=== PATIENT | female | born 1955 | race Caucasian/White ===

== ENCOUNTER 2016-12-10 10:37 | Emergency (ER) | payer SELFPAY ==
[~2016-12-10] VITALS: Ht 165.1 cm; Wt 129.0 kg
[2016-12-10 10:47] VITALS: BP 118/48; PULSE 91; RESP 18; TEMP 98; O2SAT 97
[2016-12-10] MEDS ORDERED: FURO1TAB62 PO (11:07)
[2016-12-10] MEDS ORDERED: LISI20TA3 PO (11:07)
[2016-12-10] MEDS ORDERED: GABA600T PO (11:07)
[2016-12-10] MEDS ORDERED: PRAV40TA2 PO (11:07)
[2016-12-10] MEDS ORDERED: ESOM1CAP6 PO (11:07)
[2016-12-10] MEDS ORDERED: GLIP10TA67 PO (11:07)
[2016-12-10] MEDS ORDERED: HYDR-2376 PO (11:07)
[2016-12-10] MEDS ORDERED: VENL150C39 PO (11:07)
[2016-12-10] MEDS ORDERED: POTA10TA8 PO (11:07)
[2016-12-10] MEDS ORDERED: AMIT1TAB79 PO (11:07)
[2016-12-10] MEDS ORDERED: PRAV80TA2 PO (11:07)
[2016-12-10 11:53] LABS: AUTOMATED NEUTROPHIL # 5.8 TH/MM3 (1.8-7.7); BASOPHIL % 0.5 % (0.0-2.0); EOSINOPHIL # 0.1 TH/MM3 (0-0.4); EOSINOPHIL % 1.3 % (0.0-4.0); HEMATOCRIT 24.7 % (35.0-46.0); LYMPH % 16.9 % (9.0-44.0); LYMPHOCYTE # 1.3 TH/MM3 (1.0-4.8); MEAN CELL VOLUME 72.6 FL (80.0-100.0); MEAN CORPUSCULAR HEMOGLOBIN 22.6 PG (27.0-34.0); MEAN CORPUSCULAR HGB CONC 31.2 % (32.0-36.0); MONO % 5.2 % (0.0-8.0); NEUT % 76.1 % (16.0-70.0); PLATELET COUNT 319 TH/MM3 (150-450); RED BLOOD COUNT 3.41 MIL/MM3 (4.00-5.30); RED CELL DISTRIBUTION WIDTH 17.1 % (11.6-17.2); WHITE BLOOD COUNT 7.6 TH/MM3 (4.0-11.0)
[2016-12-10 11:59] LABS: HEMO FLAGS AUTO DIFF
[2016-12-10 12:01] LABS: CHLORIDE 105 MEQ/L (98-107); POTASSIUM 4.3 MEQ/L (3.5-5.1); SODIUM (NA) 142 MEQ/L (136-145)
[2016-12-10 12:05] LABS: ANION GAP 9 MEQ/L (5-15); BICARBONATE 28.5 MEQ/L (21.0-32.0); BLOOD UREA NITROGEN 61 MG/DL (7-18)
[2016-12-10 12:07] LABS: ALT (GPT) 23 U/L (10-53)
[2016-12-10 12:08] LABS: AST (GOT) 21 U/L (15-37); GLOMERULAR FILTRATION RATE 31 ML/MIN (>89)
[2016-12-10 12:09] LABS: TOTAL BILIRUBIN ADULT 0.3 MG/DL (0.2-1.0)
[2016-12-10 12:10] LABS: ALKALINE PHOSPHATASE 89 U/L (45-117)
[2016-12-10 12:21] VITALS: BP 104/50; PULSE 67; RESP 18; O2SAT 96
[2016-12-10 12:27] LABS: OVALOCYTES 1+ (NORMAL); SCAN/DIFF AUTO DIFF CONFIRMED
--- NOTE | 2016-12-10 12:46 | RADHPO ---
EXAM DATE/TIME: 12/10/2016 11:52 [facility] COMPARISON: No previous studies available for comparison. INDICATIONS : Lower leg swelling. MEDICAL HISTORY : Hypertension. Diabetes mellitus type II. Chronic obstructive pulmonary diseas e. SURGICAL HISTORY : None. ENCOUNTER: Initial ACUITY: 4 - 6 days PAIN SCORE: 0/10 LOCATION: Bilateral chest FINDINGS: The lungs are clear without infiltrate, nodule, or mass. There is no appreciable pleural effusion fo r technique. Heart and mediastinum are unremarkable. Degenerative changes and hypertrophic changes a re seen within the disc space and facets of the thoracic spine. CONCLUSION: No acute cardiopulmonary disease. Alcira Deng MD on December 10, 2016 at 12:44 Board Certified Radiologist. This report was verified electronically.
--- NOTE | 2016-12-10 12:49 | PD ---
HPI Chief Complaint: Edema Time Seen by Provider: 11:29 Travel History International Travel<30 days: No Contact w/Intl Traveler<30days: No Traveled to known affect area: No History of Present Illness HPI To 61 year-old woman who presents to the emergency department complaining of swelling in her feet. She states that she's had swelling of both feet for the past 5 days or so. She takes Lasix as needed for lower extremity swelling. She started taking the Lasix and then Dilaudid to taking it twice a day but hasn 't really relieved the swelling. She also has a history of neuropathy and states it feels like she is walking on gravel rocks. This is not typical for her neuropathy symptoms. She has been on her feet more for the past 3 weeks, but only started having trouble couple days ago. History Past Medical History Narrative Medical Diabetes Hypertension Obesity Hyperlipidemia Diabetic neuropathy Osteoarthritis Tetanus Vaccination: > 5 Years Influenza Vaccination: No LMP: AGE 47 Menopausal: Yes Past Surgical History Surgical History: No Previous Surgery Social History Alcohol Use: Yes (RARE) Tobacco Use: No Allergies-Medications (Allergen,Severity, Reaction): Coded Allergies: Cipro (Verified Allergy, Severe, 12/10/16) Keflex (Verified Allergy, Severe, 12/10/16) Reported Meds & Prescriptions Reported Meds & Active Scripts Active Reported Hydrocodone-Acetaminophen 7.5-300 Mg Tab 1 Tab PO Q4H PRN Venlafaxine ER 24 HR (Venlafaxine HCl) 150 Mg Cap 150 Mg PO DAILY Glipizide XL (Glipizide) 10 Mg Geo 10 Mg PO DAILY Take with breakfast or first main meal of the day Nexium 24 HR (Esomeprazole DR) 20 Mg Capdr 20 Mg PO DAILY Elavil (Amitriptyline HCl) 25 Mg Tab 50 Mg PO HS Potassium Chloride CR (Potassium Chloride) 10 Meq Tab 10 Meq PO DAILY Lasix (Furosemide) 20 Mg Tab 20 Mg PO DAILY Pravastatin 80 Mg Tab 80 Mg PO DAILY Pravastatin 40 Mg Tab 40 Mg PO DAILY Gabapentin 600 Mg Tab 600 Mg PO TID Lisinopril-Hctz 20-25 Mg Tab 1 Tab PO DAILY Review of Systems Except as stated in HPI: all other systems reviewed are Neg Physical Exam Narrative GENERAL: Well-appearing 61 year-old woman, no acute distress. SKIN: Focused skin assessment warm/dry. CARDIOVASCULAR: Regular rate and rhythm. No murmur appreciated. RESPIRATORY: No accessory muscle use. Clear to auscultation. Breath sounds equal bilaterally. GASTROINTESTINAL: Abdomen soft, non-tender, nondistended. Hepatic and splenic margins not palpable. MUSCULOSKELETAL: No obvious deformities. Pitting edema both feet. Data Data Last Documented VS Vital Signs Date Time Temp Pulse Resp B/P Pulse Ox O2 Delivery O2 Flow Rate FiO2 12/10/16 12:21 67 18 104/50 96 Room Air 12/10/16 10:47 98.0 Orders Complete Blood Count With Diff (12/10/16 11:41) Comprehensive Metabolic Panel (12/10/16 11:41) Chest, Pa & Lat (12/10/16 ) Iron Sucrose Inj (Venofer Inj) (12/10/16 13:00) Labs Laboratory Tests Test 12/10/16 11:15 White Blood Count 7.6 TH/MM3 Red Blood Count 3.41 MIL/MM3 Hemoglobin 7.7 GM/DL Hematocrit 24.7 % Mean Corpuscular Volume 72.6 FL Mean Corpuscular Hemoglobin 22.6 PG Mean Corpuscular Hemoglobin 31.2 % Concent Red Cell Distribution Width 17.1 % Platelet Count 319 TH/MM3 Mean Platelet Volume 8.6 FL Neutrophils (%) (Auto) 76.1 % Lymphocytes (%) (Auto) 16.9 % Monocytes (%) (Auto) 5.2 % Eosinophils (%) (Auto) 1.3 % Basophils (%) (Auto) 0.5 % Neutrophils # (Auto) 5.8 TH/MM3 Lymphocytes # (Auto) 1.3 TH/MM3 Monocytes # (Auto) 0.4 TH/MM3 Eosinophils # (Auto) 0.1 TH/MM3 Basophils # (Auto) 0.0 TH/MM3 CBC Comment AUTO DIFF Differential Comment AUTO DIFF CONFIRMED Ovalocytes 1+ Sodium Level 142 MEQ/L Potassium Level 4.3 MEQ/L Chloride Level 105 MEQ/L Carbon Dioxide Level 28.5 MEQ/L Anion Gap 9 MEQ/L Blood Urea Nitrogen 61 MG/DL Creatinine 1.70 MG/DL Estimat Glomerular Filtration 31 ML/MIN Rate Random Glucose 184 MG/DL Calcium Level 8.4 MG/DL Total Bilirubin 0.3 MG/DL Aspartate Amino Transf 21 U/L (AST/SGOT) Alanine Aminotransferase 23 U/L (ALT/SGPT) Alkaline Phosphatase 89 U/L Total Protein 7.5 GM/DL Albumin 3.0 GM/DL [facility] Medical Decision Making Medical Screen Exam Complete: Yes Emergency Medical Condition: Yes Interpretation(s) LABS: CBC remarkable for significant anemia, microcytic indices. CMP remarkable for elevated BUN and creatinine, suggestive of prerenal azotemia Chest x-ray: Negative Differential Diagnosis Dependent edema, venous insufficiency, lymphedema, renal failure, hypoproteinemia, heart failure, other Narrative Course Medical decision making This a 61 year-old woman presents emergent department cleaning of swelling of both her feet. She's been taking Lasix to try to help with this. She appears a little bit dehydrated. Labs show marked prerenal azotemia. She also has marked anemia. I think the anemia and her obesity year likely leading to the foot swelling. She has a lot of discomfort and think is from the swelling and neuropathy. The prerenal azotemia think is from try these Lasix to treat this. We'll have her stop the Lasix. We'll given IV iron. She states she takes iron intermittently but doesn't like to take as a cause constipation. She states that anemia is from hemorrhoids that she has a bleed and bleed and bleed. She'll need follow-up with a primary physician but she just moved down here. Diagnosis Primary Impression: Microcytic anemia Additional Impressions: Prerenal azotemia Dehydration Additional Instructions: Stop taking the Lasix. This is causing you to have kidney problems. Do not resume until directed by physician. Take iron 325 mg twice daily for 1 month, then once daily after that. Take MiraLAX daily to prevent constipation. Follow-up with a primary physician for repeat blood work in the next one to 2 weeks. Return to the emergency department for any worsening symptoms. Med/Other Pt SpecificInfo: Existing Med Changed Scripts Polyethylene Glycol 3350 Powder (Miralax Powder)17 Gm Powd17 Gm PO DAILY #1 BOTTLE Ref 0 Mix and dissolve one measuring cap-ful (17 grams) in water or juice. Prov:Macario Machado MD 12/10/16 Ferrous Sulfate (Iron)325 Mg Cbs203 Mg PO BIDPC 30 Days Ref 0 Take after a meal. Prov:Macario Machado MD 12/10/16 Disposition: 01 DISCHARGE HOME Condition: Stable Macario Machado MD Dec 10, 2016 12:49
[2016-12-10] MEDS ORDERED: IRON SUCROSE 100 MG/5 ML VIAL IV PUSH ONE (13:00)
[2016-12-10] MEDS ORDERED: FERR1TAB36 PO (13:00)
[2016-12-10] MEDS ORDERED: MIRA33504 PO (13:00)
[2016-12-10] MEDS ORDERED: NS IV ONE (14:00)
[2016-12-10] MEDS ORDERED: IRON SUCROSE IV ONE (14:00)
[2016-12-10 15:37] VITALS: BP 110/50
== END 2016-12-10 15:42 | disposition home or self-care (01) ==
LOC: PHED 10:37
DX: D50.9 Iron deficiency anemia, unspecified (principal); R79.89 Other specified abnormal findings of blood chemistry; E86.0 Dehydration; R22.43 Localized swelling, mass and lump, lower limb, bilateral; I10 Essential (primary) hypertension; E11.40 Type 2 diabetes mellitus with diabetic neuropathy, unspecified; M19.90 Unspecified osteoarthritis, unspecified site; E78.5 Hyperlipidemia, unspecified; E66.9 Obesity, unspecified; Z79.84 Long term (current) use of oral hypoglycemic drugs
CPT/HCPCS: 71020; 80053; 85025; 96365; 99283; J1756

== ENCOUNTER 2017-02-07 11:27 | Emergency (ER) | payer SELFPAY ==
[~2017-02-07] VITALS: Ht 165.1 cm; Wt 132.0 kg
[~2017-02-07 11:27] MED LIST: AMIT1TAB79 PO; ESOM1CAP6 PO; FERR1TAB36 PO; FURO1TAB62 PO; GABA600T PO; GLIP10TA67 PO; HYDR-2376 PO; LISI20TA3 PO; MIRA33504 PO; POTA10TA8 PO; PRAV40TA2 PO; PRAV80TA2 PO; VENL150C39 PO
[2017-02-07 11:28] VITALS: BP 121/58; PULSE 83; RESP 16; TEMP 98.3; O2SAT 99
--- NOTE | 2017-02-07 13:16 | PD ---
HPI Chief Complaint: Fall Time Seen by Provider: 13:14 Travel History International Travel<30 days: No Contact w/Intl Traveler<30days: No Traveled to known affect area: No History of Present Illness HPI 61-year-old male presents the emergency department status post fall at work. 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 She fell down hitting her right posterior head, but denies loss of consciousness. Patient does have headache and pain at this time. Pain is currently a 4/10. She does not feel dizzy, has no nausea, or vomiting. She denies any other injury at this time. She states she has a history of chronic back pain as well as knee arthritis. She is allergic to Cipro and Keflex. PFSH Past Medical History Depression: Yes High Cholesterol: Yes COPD: Yes Diabetes: Yes Patient Takes Glucophage: No Diminished Hearing: No Genitourinary: Yes (KIDNEY DISEASE) Hypertension: Yes Neurologic: Yes Respiratory: Yes (COPD) Immunizations Current: Yes Influenza Vaccination: No ?: Not Menopausal: Yes Past Surgical History Surgical History: No Previous Surgery Social History Alcohol Use: Yes (RARE) Tobacco Use: No Substance Use: No Allergies-Medications (Allergen,Severity, Reaction): Coded Allergies: Cipro (Verified Allergy, Severe, rash, 02/07/17) Keflex (Verified Allergy, Severe, yeast infection, 02/07/17) Reported Meds & Prescriptions Reported Meds & Active Scripts Active Miralax Powder (Polyethylene Glycol 3350 Powder) 17 Gm Powd 17 Gm PO DAILY Mix and dissolve one measuring cap-ful (17 grams) in water or juice. Iron (Ferrous Sulfate) 325 Mg Tab 325 Mg PO BIDPC 30 Days Take after a meal. Reported Hydrocodone-Acetaminophen 7.5-300 Mg Tab 1 Tab PO Q4H PRN Venlafaxine ER 24 HR (Venlafaxine HCl) 150 Mg Cap 150 Mg PO DAILY Glipizide XL (Glipizide) 10 Mg Geo 10 Mg PO DAILY Take with breakfast or first main meal of the day Nexium 24 HR (Esomeprazole DR) 20 Mg Capdr 20 Mg PO DAILY Elavil (Amitriptyline HCl) 25 Mg Tab 50 Mg PO HS Potassium Chloride CR (Potassium Chloride) 10 Meq Tab 10 Meq PO DAILY Lasix (Furosemide) 20 Mg Tab 20 Mg PO DAILY Pravastatin 80 Mg Tab 80 Mg PO DAILY Pravastatin 40 Mg Tab 40 Mg PO DAILY Gabapentin 600 Mg Tab 600 Mg PO TID Lisinopril-Hctz 20-25 Mg Tab 1 Tab PO DAILY Review of Systems General / Constitutional: No: Fever Eyes: No: Diploplia, Blurred Vision, Photophobia, Drainage, Blind Spots, Visual changes, Blindness HENT: Positive: Headaches, Neck Pain, No: Vertigo, Lightheadedness, Neck Stiffness Cardiovascular: No: Chest Pain or Discomfort Respiratory: No: Shortness of Breath Gastrointestinal: No: Abdominal Pain Genitourinary: No: Dysuria Musculoskeletal: Positive: Pain (see history present illness.) Skin: No Rash Neurologic: No: Weakness Psychiatric: No: Depression Endocrine: No: Polydipsia Hematologic/Lymphatic: No: Easy Bruising Physical Exam Narrative GENERAL: Obese Patient who appears in mild distress. SKIN: Warm and dry. No color. Normal turgor. HEAD: Normocephalic. Patient has swollen area to the right posterior scalp over this region. EYES: Pupils equal and round. No scleral icterus. No injection or drainage. ENT: No nasal bleeding or discharge. Mucous membranes pink and moist. No dental injury. No facial injury. TMs are clear bilaterally. NECK: Trachea midline. Patient has tenderness to the upper midline cervical spine. Cervical immobilization is left in place for CT scan. CARDIOVASCULAR: Regular rate and rhythm. RESPIRATORY: No accessory muscle use. Clear to auscultation. Breath sounds equal bilaterally. GASTROINTESTINAL: Abdomen soft, non-tender, nondistended. Hepatic and splenic margins not palpable. MUSCULOSKELETAL: Extremities without clubbing, cyanosis, or edema. No obvious deformities. Right knee is currently asymptomatic, without laxity or significant pain. No effusion. She complains of pain along the right lower lumbar area and sciatic notch. She states this is not worse than normal. NEUROLOGICAL: Awake and alert. No obvious cranial nerve deficits. Motor grossly within normal limits. Five out of 5 muscle strength in the arms and legs. Normal speech. PSYCHIATRIC: Appropriate mood and affect; insight and judgment normal. Data Data Last Documented VS Vital Signs Date Time Temp Pulse Resp B/P Pulse Ox O2 Delivery O2 Flow Rate FiO2 02/07/17 11:28 98.3 83 16 121/58 99 Orders Collar [place] (02/07/17 ) Ct Brain W/O Iv Contrast(Rout) (02/07/17 13:04) Ct Cerv Spine W/O Contrast (02/07/17 13:04) [facility] Medical Decision Making Medical Screen Exam Complete: Yes Emergency Medical Condition: Yes Differential Diagnosis Fall at work. Scalp contusion. Neck pain. Workplace injury. Narrative Course Patient is medically stable at time of exam. Cervical immobilization is maintained for CT scan. CT of the head and neck are ordered. CT is negative for acute fracture or intracranial bleed. Large hematomas noted on CT of the head to the left parietal region per radiologist. Patient will be treated with prednisone 20 mg twice a day 5 days. Patient also take acetaminophen 500 mg 2 tabs every 6 hours when necessary pain. Patient is to use ice to the scalp region frequently. Worker's Comp. forms completed with no restrictions, and back to work tomorrow. Patient is to follow with local primary care physician or return to emergency department if symptoms worsen as needed. Diagnosis Primary Impression: Work place accident Additional Impression: Contusion of scalp, initial encounter Referrals: [facility] Patient Instructions: General Instructions, Scalp Contusion in Adults (ED) Additional Instructions: CT is negative for acute fracture or intracranial bleed. Large hematomas noted on CT of the head to the left parietal region per radiologist. Patient will be treated with prednisone 20 mg twice a day 5 days. Patient also take acetaminophen 500 mg 2 tabs every 6 hours when necessary pain. Patient is to use ice to the scalp region frequently. Worker's Comp. forms completed with no restrictions, and back to work tomorrow. Patient is to follow with local primary care physician or return to emergency department if symptoms worsen as needed. Med/Other Pt SpecificInfo: Prescription(s) given Disposition: 01 DISCHARGE HOME Condition: Stable Clem Butler Feb 07, 2017 13:16
--- NOTE | 2017-02-07 14:13 | RADRPT ---
EXAM DATE/TIME: 02/07/2017 13:49 [facility] COMPARISON: No previous studies available for comparison. INDICATIONS : Paitent fell today hitting back of head on wall. RADIATION DOSE: 56.35 CTDIvol (mGy) MEDICAL HISTORY : Hypertension. Chronic obstructive pulmonary disease. Diabetes,kidney disease SURGICAL HISTORY : None. ENCOUNTER: Initial ACUITY: 1 day PAIN SCALE: 7/10 LOCATION: cranial TECHNIQUE: Multiple contiguous axial images were obtained of the head. Using automated exposure control and adj ustment of the mA and/or kV according to patient size, radiation dose was kept as low as reasonably a chievable to obtain optimal diagnostic quality images. FINDINGS: CEREBRUM: The ventricles are normal for age. No evidence of midline shift, mass lesion, hemorrhage or acute in farction. No extra-axial fluid collections are seen. POSTERIOR FOSSA: The cerebellum and brainstem are intact. The 4th ventricle is midline. The cerebellopontine angle i s unremarkable. EXTRACRANIAL: The visualized portion of the orbits is intact. SKULL: The calvaria is intact. No evidence of skull fracture. CONCLUSION: 1. No acute intracranial abnormality identified. 2. Note is made of hematoma within the scalp along the posterior right parietal region. Arnel Woods MD on February 07, 2017 at 14:10 Board Certified Radiologist. This report was verified electronically.
--- NOTE | 2017-02-07 14:18 | RADRPT ---
EXAM DATE/TIME: 02/07/2017 13:49 [facility] COMPARISON: No previous studies available for comparison. INDICATIONS : Fell hit back of head against wall. RADIATION DOSE: 38.75 CTDIvol (mGy) MEDICAL HISTORY : Chronic obstructive pulmonary disease. Hypertension. Diabetes,kidney disease SURGICAL HISTORY : None. ENCOUNTER: Initial ACUITY: 1 day PAIN SCALE: 7/10 LOCATION: neck TECHNIQUE: Volumetric scanning of the cervical spine was performed. Multiplanar reconstructions in the sagittal, coronal and oblique axial planes were performed. Using automated exposure control and adjustment o f the mA and/or kV according to patient size, radiation dose was kept as low as reasonably achievable to obtain optimal diagnostic quality images. FINDINGS: Sagittal and coronal reformats demonstrate adequate alignment of the cervical vertebral bodies. There are degenerative changes within the cervical spine. No acute fracture is identified.. C2-C3: The bony spinal canal is normal in size. No evidence of disc bulge or herniation. The neural forami na are bilaterally patent. C3-C4: The bony spinal canal is normal in size. No evidence of disc bulge or herniation. The neural forami na are bilaterally patent. There is mild facet arthritis bilaterally. C4-C5: There is a degenerated disc. There is moderate facet arthritis on the left. There is mild bony forami nal narrowing on the left. The residual thecal space and foramina on the right are adequate. C5-C6: There is a degenerated disc with osteophytic ridging. There is mild facet arthritis bilaterally. Ther e is uncovertebral osteophyte encroaches upon the lateral recess and base of the foramina on the left . The foramina on the right is adequate. C6-C7: There is minimal disc bulge and osteophytic ridging. This effaces the ventral thecal sac. Residual th ecal space and foramina are adequate. Facet joints are intact. C7-T1: The bony spinal canal is normal in size. No evidence of disc bulge or herniation. The neural forami na are bilaterally patent. CONCLUSION: 1. Degenerative changes. No acute fracture. Arnel Woods MD on February 07, 2017 at 14:13 Board Certified Radiologist. This report was verified electronically.
[2017-02-07] MEDS ORDERED: AMIT50TA3 PO (14:52)
[2017-02-07] MEDS ORDERED: CYCL1TAB29 PO (14:52)
[2017-02-07] MEDS ORDERED: NON-500T13 PO (14:54)
[2017-02-07] MEDS ORDERED: PRED20 PO (14:54)
== END 2017-02-07 15:35 | disposition home or self-care (01) ==
LOC: NEPD 11:27
DX: S00.03XA Contusion of scalp, initial encounter (principal); W22.8XXA Striking against or struck by other objects, initial encounter; W18.39XA Other fall on same level, initial encounter; Y93.89 Activity, other specified; Y92.129 Unspecified place in nursing home as the place of occurrence of the external cause; Y99.0 Civilian activity done for income or pay
CPT/HCPCS: 70450; 72125; 99284; L0150